=== PATIENT | male | born 1985 | race Caucasian/White ===

== ENCOUNTER 2021-05-23 14:56 | Emergency (ER) | payer OTHER ==
[~2021-05-23] VITALS: Ht 182.9 cm; Wt 81.7 kg
--- NOTE | ~2021-05-23 | EMS ---
[address] [address] EMS Patient Care Report Name: KAELYN YING JR Room #: DEP AMADOR Hudson#: [id number] Admission: 05/23/21 Attend Phys: Discharge: 05/23/21 Date of : [birth year] Report #: [id number] THIS REPORT FOR: //name// Report Transmitted: 05/24/2021 07:45 EMS Care Summary [place], [place]/[facility] Incident [id number] @ 05/23/2021 14:21 Incident Location [id number] [place] [address] Patient KAELYN YING Male, 35 Years 1985 Patient Address [address] [place], [place] [id number] Patient History Behavioral/Psychiatric Disorder, Patient Allergies No known allergies, Patient Medications Trazodone, Zoloft, Olanzapine, Depakote, Chief Complaint Prolasped rectum Disposition Transported No Lights/[place] Dispatch Reason Traumatic Injury Transported To [facility] Narrative M42 arrived on scene to find the patient squatting on the ground. Staff said the patient rectum had prolapsed and the patient was picking at it. They said the patient was also urinating on the ground. They said the patient had pushed his rectum back into his body prior to our arrival. They said the patient [address] [address] EMS Patient Care Report Name: KAELYN YING JR Room #: DEP Becca#: [id number] Admission: 05/23/21 Attend Phys: Discharge: 05/23/21 Date of : [birth year] Report #: [id number] mentation was normal for him but they had never seen him mess with his rectum like that. It was also abnormal for the patient to urinate on the ground. Patient was moved to the cot and the seat belts were used to secure the patient. En route to the hospital no changes in the patient condition occurred. [facility] arrived on scene of the hospital and patient care was transferred to the RN. Initial Vitals @14:42P: 93,R: 16,BP: 107/70,Pain: 0/10,GCS: 14,SpO2: 98,Revised Trauma: 12, @14:41P: 94,R: 16,BP: 105/70,Pain: 0/10,GCS: 14,SpO2: 98,Revised Trauma: 12, Assessments @14:33MENTAL:Person Oriented,SKIN:No Abnormalities,HEENT:Head/Face: No Abnormalities,Eyes: No Abnormalities,Neck/Airway: No Abnormalities,LUNG SOUNDS:General: No Abnormalities,Left Upper: No Abnormalities,Right Upper: No Abnormalities,Left Lower: No Abnormalities,Right Lower: No Abnormalities,ABDOMEN:General: No Abnormalities,Left Upper: No Abnormalities,Right Upper: No Abnormalities,Left Lower: No Abnormalities,Right Lower: No Abnormalities,PELVIS//GI:No Abnormalities,EXTREMITIES:Left Arm: No Abnormalities,Right Arm: No Abnormalities,Left Leg: No Abnormalities,Right Leg: No Abnormalities,PULSE:NEURO:No Abnormalities,@14:45MENTAL:Person Oriented,SKIN:No Abnormalities,HEENT:Head/Face: No Abnormalities,Eyes: No Abnormalities,Neck/Airway: No Abnormalities,LUNG SOUNDS:General: No Abnormalities,Left Upper: No Abnormalities,Right Upper: No Abnormalities,Left Lower: No Abnormalities,Right Lower: No Abnormalities,ABDOMEN:General: No Abnormalities,Left Upper: No Abnormalities,Right Upper: No Abnormalities,Left Lower: No Abnormalities,Right Lower: No Abnormalities,PELVIS//GI:No Abnormalities,EXTREMITIES:Left Arm: No Abnormalities,Right Arm: No Abnormalities,Left Leg: No Abnormalities,Right Leg: No Abnormalities,PULSE:NEURO:No Abnormalities, Impression Foreign Body in Anus and Rectum Procedures @14:33ALS AssessmentResponse: UnchangedSucceeded Timeline 14:19,Call Received 14:19,Dispatch Notified 14:21,Dispatched 14:22,En Route 14:31,On Scene 14:33,At Patient 14:33,ALS Assessment,Response: UnchangedSucceeded, 14:41,BP: 105/70 M,PULSE: 94,RR: 16 R,SPO2: 98 Ox,ETCO2: ,BG: ,PAIN: 0,GCS: 14, [facility] [address] [place] [address] EMS Patient Care Report Name: KAELYN YING JR Room #: DEP AMADOR Hudson#: [id number] Admission: 05/23/21 Attend Phys: Discharge: 05/23/21 Date of : [birth year] Report #: [id number] 14:42,BP: 107/70 M,PULSE: 93,RR: 16 R,SPO2: 98 Ox,ETCO2: ,BG: ,PAIN: 0,GCS: 14, 14:43,Depart Scene 14:53,At Destination 15:14,Call Closed Disclaimer v1.1 Copyright 2020 [employer] This EMS Care Summary contains data elements from the applicable legal record (which may be displayed differently). It is designed to provide pertinent information for the following purposes: continuity of care, clinical quality, and state data reporting. The complete legal record is available to ED staff and administrators of the receiving hospital in [employer]'s Patient Tracker. All data is provided "as is."
[2021-05-23 15:00] VITALS: BP 110/69
[2021-05-23 15:19] LABS: URINE BILIRUBIN NEGATIVE (Negative); URINE BLOOD NEGATIVE (Negative); URINE CLARITY CLEAR; URINE COLOR YELLOW; URINE GLUCOSE-RANDOM* NEGATIVE (Negative); URINE KETONES NEGATIVE (Negative); URINE LEUKOCYTES-REFLEX NEGATIVE (Negative); URINE NITRITE-REFLEX NEGATIVE (Negative); URINE PROTEIN (DIPSTICK) NEGATIVE (Negative); URINE UROBILINOGEN 0.2 E.U./dl (0.2-1.0)
== END 2021-05-23 17:00 | disposition home or self-care (01) ==
LOC: ER 14:56
PROVIDERS: Emergency Medicine
DX: K62.3 Rectal prolapse (principal); Z88.6 Allergy status to analgesic agent